=== PATIENT | male | born 1945 | race Caucasian/White ===

== ENCOUNTER 2016-11-27 08:43 | Observation (INO) | payer MEDICARE, OTHER ==
[~2016-11-27] VITALS: Ht 170.2 cm; Wt 72.8 kg
[~2016-11-27 08:43] MED LIST: ASPIRIN 32325 MG/TA1 PO; DESYREL 50MG50 MG PO; FENTANYL 25 MCG TOP; LUVOX 50MG50 MG/TAB PO; MOTRIN 800800 MG/TAB PO; SYNTHROID 0.0.025 MG PO; WELLBUTRIN XL150 MG PO; ZOCOR 40MG40 MG PO; ZOCOR 80MG80 MG PO
[2016-11-27] MEDS ORDERED: ASPIRIN 32325 MG/TAB PO (09:08)
[2016-11-27] MEDS ORDERED: LIPITOR 40MG TA40 MG PO (09:09)
[2016-11-27] MEDS ORDERED: WELLBUTRIN XL150 MG PO (09:10)
[2016-11-27 09:14] LABS: BASO # 0.1 (0.0-0.2); BASO % 1.1 % (0.0-2.0); EOS # 0.4 (0.0-0.7); EOS % 5.6 % (0-4.0); GRAN # 4.3 (1.4-6.5); GRAN % 64.5 % (42.2-75.2); HEMATOCRIT 38.6 % (42.0-52.0); HEMOGLOBIN 12.8 g/dl (13.5-18.0); LYMPH # 1.3 (1.2-3.4); LYMPH % 19.7 % (20.0-51.0); MEAN CELL VOLUME 86 fl (80.0-100.0); MEAN CORPUSCULAR HEMOGLOBIN 29 pg (27.0-31.0); MEAN CORPUSCULAR HGB CONC 33 g/dl (33.0-37.0); MEAN PLATELET VOLUME 11.9 fl (7.4-10.4); MONO # 0.6 (0.1-0.6); MONO % 8.6 % (1.7-9.3); PLATELET COUNT 121 K/mm3 (130-400); RED BLOOD COUNT 4.48 M/mm3 (4.20-5.60); REDCELL DISTRIBUTION WIDTH-CV 12.3 % (11.5-14.5); WHITE BLOOD COUNT 6.6 K/mm3 (4.8-10.8)
[2016-11-27 09:25] LABS: ADJUSTED CALCIUM 9.4 mg/dL (8.4-10.2); ALBUMIN 3.8 gm/dL (3.5-5.0); BILIRUBIN,TOTAL 0.7 mg/dL (0.0-1.0); CALCIUM 9.2 mg/dL (8.4-10.2); CREATININE, serum 1.11 mg/dL (0.66-1.25); TOTAL PROTEIN 6.6 gm/dL (6.4-8.2)
[2016-11-27 12:01] VITALS: BP 123/49; PULSE 78; TEMP 97.7
[2016-11-27 15:13] VITALS: BP 145/63; PULSE 84; TEMP 98.8
[2016-11-27 21:25] VITALS: BP 126/54; PULSE 73; TEMP 97.8
[2016-11-27 23:45] VITALS: PULSE 72
[2016-11-28 03:54] VITALS: BP 126/61; PULSE 76; TEMP 98.4
[2016-11-28 07:54] LABS: THYROID STIMULATING HORMONE 1.81 uIU/mL (0.465-4.680)
[2016-11-28 07:59] VITALS: BP 118/55; PULSE 73; TEMP 97.8
[2016-11-28] MEDS ORDERED: PLAVIX 75MG TAB75 MG PO (10:16)
[2016-11-28] MEDS ORDERED: ASPIRIN 81M81 MG/TA2 PO (10:17)
[2016-11-28 12:30] VITALS: BP 128/60; PULSE 69; TEMP 97.7
== END 2016-11-28 16:14 | disposition home or self-care (01) ==
LOC: COL.ER 08:43 → MEDICAL 10:13
PROVIDERS: Emergency Medicine; Internal Medicine
DX: G45.9 Transient cerebral ischemic attack, unspecified (principal); I25.10 Atherosclerotic heart disease of native coronary artery without angina pectoris; F32.9 Major depressive disorder, single episode, unspecified; R51 Headache; E03.9 Hypothyroidism, unspecified; E78.00 Pure hypercholesterolemia, unspecified; Z95.5 Presence of coronary angioplasty implant and graft
CPT/HCPCS: A9585; G0378; G8987-GO; G8988-GO; J1650

== ENCOUNTER 2020-01-24 10:48 | Day surgery (SDC) | payer MEDICARE, OTHER ==
[2020-01-24] VITALS (10 sets, daily range): BP systolic 130–161; BP diastolic 51–78; PULSE 56–72; TEMP 98
[~2020-01-24 10:48] MED LIST changes: +ASPIRIN 32325 MG/TAB PO; +ASPIRIN 81M81 MG/TA2 PO; +ASPIRIN E.C. 8181 MG PO; +BRILINTA90 MG PO; +COREG 3.123.125 MG/T PO; +COREG 6.256.25 MG/TA PO; +FISH OIL 1000MG1 CAP PO; +LIPITOR 80MG80 MG PO; +PLAVIX 75MG TAB75 MG PO; +PRINIVIL5 MG PO; -SYNTHROID 0.0.025 MG PO; +SYNTHROID0.075 MG/T PO; +VIAGRA100 M1 PO; +ZESTRIL 10MG10 MG PO
[2020-01-24] MEDS ORDERED: COZAAR 25MG25 MG/TAB PO (11:04)
[2020-01-24] MEDS ORDERED: PLAVIX 75MG TAB75 MG PO (11:04)
[2020-01-24] MEDS ORDERED: NITROSTAT0.4 MG/TAB SL (11:05)
[2020-01-24] MEDS ORDERED: CIALIS20 MG PO (11:15)
[2020-01-24 11:50] LABS: INR 1.1 (0.8-3.0); PROTHROMBIN TIME 11.8 SECONDS (9.7-12.8)
[2020-01-24 11:53] LABS: PARTIAL THROMBOPLASTIN TIME 30.4 SECONDS (26.0-37.0)
[2020-01-24 11:55] LABS: HEMOGLOBIN 11.7 g/dl (13.5-18.0); MEAN CELL VOLUME 88 fl (80.0-100.0); MEAN CORPUSCULAR HEMOGLOBIN 29 pg (27.0-31.0); MEAN CORPUSCULAR HGB CONC 33 g/dl (33.0-37.0); MEAN PLATELET VOLUME 11.1 fl (7.4-10.4); PLATELET COUNT 58 K/mm3 (130-400); RED BLOOD COUNT 4.05 M/mm3 (4.20-5.60); REDCELL DISTRIBUTION WIDTH-CV 12.1 % (11.5-14.5)
[2020-01-24 12:15] LABS: CREATININE, serum 1.06 (0.66-1.25); POTASSIUM 4.2 mmol/L (3.4-5.0)
[2020-01-24 12:30] LABS: HEMATOCRIT 35.7 % (42.0-52.0)
--- NOTE | 2020-01-24 13:41 | NUR ---
SEE MERGE DOCUMENTATION FOR MEDICATION ADMINSTRATION AND INTRA/POST PROCEDURE SEDATION ASSESSMENTS.
--- NOTE | 2020-01-24 14:45 | NUR ---
Back from Rn Charge by bed. Alert and confused. Bed alarm on and door left open in sight of nurses station. 15 cc air in Right Tband , good pulses, and cap refill <3 secs noted.
--- NOTE | 2020-01-24 17:30 | NUR ---
15 cc air out of Tband and pressure dressing applied. INT discontinued intact.
--- NOTE | 2020-01-24 18:00 | NUR ---
Transferred to private car by wc. Discharge instructions given to at this time
== END 2020-01-24 18:00 | disposition home or self-care (01) ==
LOC: COL.CAR 10:48
PROVIDERS: Internal Medicine Cardiovascular Disease
DX: I25.10 Atherosclerotic heart disease of native coronary artery without angina pectoris (principal); I08.8 Other rheumatic multiple valve diseases; I10 Essential (primary) hypertension; E78.5 Hyperlipidemia, unspecified; E03.9 Hypothyroidism, unspecified; F32.9 Major depressive disorder, single episode, unspecified; Z95.5 Presence of coronary angioplasty implant and graft; Z88.8 Allergy status to other drugs, medicaments and biological substances; Z79.82 Long term (current) use of aspirin; Z79.02 Long term (current) use of antithrombotics/antiplatelets; Z87.891 Personal history of nicotine dependence; Z80.8 Family history of malignant neoplasm of other organs or systems
CPT/HCPCS: C1769; J1200; J1644; J2250; J2704; J2930; J3010; Q9967

== ENCOUNTER 2020-07-10 12:23 | Outpatient (RCR) | payer MEDICARE, OTHER ==
[~2020-07-10 12:23] MED LIST changes: +CIALIS20 MG PO; +COZAAR 25MG25 MG/TAB PO; +NITROSTAT0.4 MG/TAB SL
== END 2020-07-14 | disposition home or self-care (01) ==
LOC: COL.CR
DX: Z48.812 Encounter for surgical aftercare following surgery on the circulatory system (principal); Z95.1 Presence of aortocoronary bypass graft; Z95.2 Presence of prosthetic heart valve; I25.10 Atherosclerotic heart disease of native coronary artery without angina pectoris; I35.1 Nonrheumatic aortic (valve) insufficiency

== ENCOUNTER 2020-07-20 13:09 | Outpatient (RCR) | payer MEDICARE, OTHER | END 2020-07-24 13:16 | disposition home or self-care (01) | LOC: COL.CR 13:09 | DX: Z48.812 Encounter for surgical aftercare following surgery on the circulatory system (principal); Z95.2 Presence of prosthetic heart valve; I35.1 Nonrheumatic aortic (valve) insufficiency ==